=== PATIENT | female | born 1975 | race Caucasian/White ===

== ENCOUNTER → 2017-09-03 | Outpatient (CLI) | payer MEDICAID | LOC: FIMAGING 10:44 | PROVIDERS: ATTEND Obstetrics & Gynecology | DX: O36.80X0 Pregnancy with inconclusive fetal viability, not applicable or unspecified (principal); Z3A.01 Less than 8 weeks gestation of pregnancy ==

== ENCOUNTER → 2017-10-23 | Outpatient (CLI) | payer MEDICAID | LOC: FIMAGING 09:41 | PROVIDERS: ATTEND Obstetrics & Gynecology | DX: O09.521 Supervision of elderly multigravida, first trimester (principal); E03.9 Hypothyroidism, unspecified; Z3A.12 12 weeks gestation of pregnancy; Z79.899 Other long term (current) drug therapy ==

== ENCOUNTER → 2017-12-24 | Outpatient (CLI) | payer MEDICAID | LOC: FIMAGING 07:54 | PROVIDERS: ATTEND Obstetrics & Gynecology | DX: O09.522 Supervision of elderly multigravida, second trimester (principal); Z3A.20 20 weeks gestation of pregnancy ==

== ENCOUNTER → 2018-01-24 | Outpatient (CLI) | payer MEDICAID | LOC: FIMAGING 11:18 | PROVIDERS: ATTEND Obstetrics & Gynecology | DX: O09.522 Supervision of elderly multigravida, second trimester (principal); Z3A.25 25 weeks gestation of pregnancy ==

== ENCOUNTER → 2018-03-18 | Outpatient (CLI) | payer MEDICAID | LOC: FIMAGING 13:56 | PROVIDERS: ATTEND Obstetrics & Gynecology | DX: O09.523 Supervision of elderly multigravida, third trimester (principal); Z3A.32 32 weeks gestation of pregnancy ==

== ENCOUNTER 2018-05-06 02:24 | Inpatient (IN) | payer MEDICAID ==
[2018-05-06] MEDS ORDERED: OXYTOCIN 10 UNIT/ML VIAL ONE (02:34)
[2018-05-06] MEDS ORDERED: LIDOCAINE 1% 300 MG/30 ML SDV ONE (02:34)
[2018-05-06] MEDS ORDERED: TERBUTALINE SULFATE 1 MG/ML VIAL ONE (02:34)
[2018-05-06] MEDS ORDERED: OLIVE OIL 118 ML BTL ONE (02:34)
[2018-05-06] MEDS ORDERED: AMMONIA AROMATIC 1 EACH AMP IH ONE (02:34)
[2018-05-06] MEDS ORDERED: MISOPROSTOL 200 MCG TAB ONE (02:34)
[2018-05-06] MEDS ORDERED: LR 1,000 ML IV PRN (03:11)
[2018-05-06] MEDS ORDERED: OXYTOCIN/RINGERS LACTATE 1,000 ML IV PRN (03:11)
[2018-05-06] MEDS ORDERED: LIDOCAINE 1% 300 MG/30 ML SDV SC PRN (03:11)
[2018-05-06] MEDS ORDERED: TERBUTALINE SULFATE 1 MG/ML VIAL IV PRN (03:11)
[2018-05-06] MEDS ORDERED: EPSOM SALT 454 GM TP PRN (03:11)
[2018-05-06] MEDS ORDERED: IBUPROFEN 600 MG TAB PO PRN (03:11)
[2018-05-06] MEDS ORDERED: AMMONIA AROMATIC 1 EACH AMP IH PRN (03:11)
[2018-05-06] MEDS ORDERED: OLIVE OIL 118 ML BTL MISC PRN (03:11)
[2018-05-06] MEDS ORDERED: MISOPROSTOL 200 MCG TAB PO PRN (03:11)
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
[2018-05-06] MEDS ORDERED: LR 500 ML IV PRN (04:55)
[2018-05-06] MEDS ORDERED: OXYTOCIN/RINGERS LACTATE 500 ML IV SCH (05:00)
--- NOTE | 2018-05-06 06:17 | OBPROG ---
Labor Progress Note Assessment/Plan: A/P: 42 yo at 39w6d, in second stage of labor. Finally able to consistently reduce the anterior lip of the cervix and pt finally agreed to allow pitocin to be started. Progess now being made, after taking over an hour break. Anticipate vaginal delivery. Wendy Baltazar MD, [facility]ACOG [facility] 05/06/18 06:13 Subjective/Intrapartum Course: Pt was able to rest and get up and void, during the break from pushing. 05/06/18 06:18 Objective: During a few more exams after resuming pushing - was able to finally remove/ reduce the cervix without it returning, and good descent of vertex was noted. - SVE Dilation (cm): 10 Effacement (%): 100 Station: +1 Amniotic Fluid Color: Clear - Contraction Pattern Assessment Current Contraction Pattern: Regular - FHR Assessment Burrows FHR (bpm): 125 FHR Pattern Variability: Moderate FHR Category: 1 ICD10 Worksheet Patient Problems: Problems Problem Status Onset Delayed delivery after SROM (spontaneous rupture of membranes) Acute Elderly multigravida in third trimester Acute Elderly multigravida in third trimester Acute - ICD10 Problem Qualifiers (1) Elderly multigravida in third trimester (2) Elderly multigravida in third trimester (3) Delayed delivery after SROM (spontaneous rupture of membranes)
--- NOTE | 2018-05-06 06:53 | OBDEL ---
Info Type: Vaginal Presentation at Delivery: Vertex L&D Analgesia/Anesthesia Type: None GBS+: No Intrapartum Medications: Generic Name Dose Route Start Last Admin Trade Name Krishan PRN Reason Stop Dose Admin Oxytocin/Lactated Ringer's 500 mls @ 0 mls/hr 05/06/18 05:00 05/06/18 05:57 Pitocin 30 Units/Lr (Premix) IV 11/02/18 04:59 500 mls CONT ROBERT Administration Protocol Per Protocol - Hospital Course Intrapartum: Pt was able to rest and get up and void, during the break from pushing. 05/06/18 06:18 Indications for Delivery: Spontaneous Labor, SROM Vaginal Delivery - Labor and Delivery Onset of Contractions Date: 05/05/18 Onset of Contractions Time: 23:30 Onset of Contractions Type: Augmented (Pitocin augmentation started in the second stage) Rupture of Membranes Date: 05/05/18 Rupture of Membranes Time: 23:30 Rupture of Membranes Type: Spontaneous Amniotic Fluid Color: Clear Dilation Complete Date: 05/06/18 Dilation Complete Time: 03:08 - Medications Labor Augmentation/Induction Methods Used: Pitocin Labor Augmentation/Induction Indication: Contraction Strength Inadequate ICD10 Worksheet Patient Problems: Problems Problem Status Onset Delayed delivery after SROM (spontaneous rupture of membranes) Acute Elderly multigravida in third trimester Acute Elderly multigravida in third trimester Acute - ICD10 Problem Qualifiers (1) Elderly multigravida in third trimester (2) Elderly multigravida in third trimester (3) Delayed delivery after SROM (spontaneous rupture of membranes)
[2018-05-06] MEDS ORDERED: HYDROCORTISONE 0.5% CREAM TP PRN (06:54)
[2018-05-06] MEDS ORDERED: SIMETHICONE 80 MG TAB CHEW PO PRN (06:54)
[2018-05-06] MEDS ORDERED: DOCUSATE SODIUM 100 MG CAP PO PRN (06:54)
--- NOTE | 2018-05-06 07:02 | OBDEL ---
Info Type: Vaginal Presentation at Delivery: Vertex L&D Analgesia/Anesthesia Type: None GBS+: No Intrapartum Medications: Generic Name Dose Route Start Last Admin Trade Name Krishan PRN Reason Stop Dose Admin Oxytocin/Lactated Ringer's 500 mls @ 0 mls/hr 05/06/18 05:00 05/06/18 05:57 Pitocin 30 Units/Lr (Premix) IV 11/02/18 04:59 500 mls CONT ROBERT Administration Protocol Per Protocol - Hospital Course Intrapartum: Pt was able to rest and get up and void, during the break from pushing. 05/06/18 06:18 Indications for Delivery: Spontaneous Labor, SROM Vaginal Delivery - Delivery Provider Delivery Physician/CNM: Wendy Baltazar - Labor and Delivery Onset of Contractions Date: 05/05/18 Onset of Contractions Time: 23:30 Rupture of Membranes Date: 05/05/18 Rupture of Membranes Time: 23:30 Rupture of Membranes Type: Spontaneous Amniotic Fluid Color: Clear Dilation Complete Date: 05/06/18 Dilation Complete Time: 03:08 Placenta Delivery Date: 05/06/18 Placenta Delivery Time: 06:45 Total Hours of Labor: 7 Laceration: 1st Degree (and superficial periurethral lacs - all hemostatic, no repairs indicated) Vaginal Sponge Count Correct: Yes Vaginal Needle Count Correct: Yes Vaginal Sweep Performed: Yes EBL: 300 Delivery Events: Shoulder Dystocia (turtle sign, time marked, followed by Scooter and rotational suprapubic pressure with delivery of the right anterior shoulder approximately 30 seconds after the vertex.) Delivery Comment: Pt arrived in L& D at 9.5 m dilated. Unmedicated. Approximately 40 min later she was complete and pushing commenced. During pushing, no descent was made and the anterior lip of the cervix kept reappearing. After pushing almost 1.5 hours, decision was made to stop pushing, and allow pt time to consider allowing pitocin as recommended. Pitocin was started at 0600 and pushing was restarted. Delivery of vertex at 0633, shoulder dystocia noted, and resolved with Scooter followed by rotational suprapubic pressure - resolved in less than 30 seconds. WILIAM, right shoulder was anterior. Small superficial periurethral lacs and 1st degree lac, all hemostatic, no repairs indicated. Gentle traction on the cord and the placenta began to deliver. The cord avulsed when the placenta was at the introitus, it was grasped manually and delivery was assisted gently. EBL 300. Examination of the entire cervix revealed no cervical lacerations. Fundal massage was performed and clots were removed from the lower uterine segment. Pt and baby left in room with RN. Baby moving right arm without any difficulty. - Medications Labor Augmentation/Induction Methods Used: Pitocin Labor Augmentation/Induction Indication: Contraction Strength Inadequate ICD10 Worksheet Patient Problems: Problems Problem Status Onset Delayed delivery after SROM (spontaneous rupture of membranes) Acute Elderly multigravida in third trimester Acute Elderly multigravida in third trimester Acute - ICD10 Problem Qualifiers (1) Elderly multigravida in third trimester (2) Elderly multigravida in third trimester (3) Delayed delivery after SROM (spontaneous rupture of membranes)
[2018-05-06] MEDS: IBUPROFEN 600 MG TAB PO SCH ×3 (07:44→20:15)
[2018-05-06] MEDS: ACETAMINOPHEN 325 MG TAB PO SCH ×3 (07:45→20:14)
[2018-05-07 00:31] VITALS: BP 110/58
[2018-05-07] MEDS: IBUPROFEN 600 MG TAB PO SCH ×3 (03:59→17:08)
[2018-05-07] MEDS: ACETAMINOPHEN 325 MG TAB PO SCH ×3 (03:59→17:08)
--- NOTE | 2018-05-07 10:36 | OBPP ---
Progress Note Assessment/Plan: Assessment: s/p PPD # 1 - pt is stable Plan: Continue routine pp care Plan for d/c home later this evening per pt request Instructions reviewed with pt No Rx given Cont PNV and colace Pelvic rest RTC in 4 and 6 weeks for pp visit 05/07/18 10:36 Subjective/ Course: 05/07/18 10:37 Pt seen and examined. Doing well, with no complaints. Some mild cramping, relief with po meds. Mod lochia. Pt is OOB, michael reg diet, voiding without difficulty and passing flatus. No BM yet. BF without difficulty. They want to go home later this evening. Objective: Patient ABO/Rh O POSITIVE 05/06/18 04:45 Temp Pulse Resp BP Pulse Ox 36.8 C 64 14 110/58 L 97 05/06/18 20:00 05/06/18 20:00 05/06/18 20:00 05/06/18 20:00 05/06/18 11:00 Uterine Position/Fundal Height: Umbilicus -2 Uterine Tone: Firm Physical Exam - Physical Exam General Appearance: WD/WN, alert, no apparent distress Respiratory: lungs clear, normal breath sounds Cardiac/Chest: regular rate, rhythm Abdomen: normal bowel sounds, non-tender, soft, flatus (+) Extremities: non-tender, normal inspection Back: Normal inspection Skin: normal color, warm/dry Neuro/Psych: alert, normal mood/affect, oriented x 3
--- NOTE | 2018-05-07 10:40 | OBGCSDC ---
General Delivery Information - General Info : 4 Para: 2 Abortions: 2 Type: Vaginal L&D Analgesia/Anesthesia Type: None Admission Date: 05/06/18 Labs: Patient ABO/Rh O POSITIVE 05/06/18 04:45 - Hospital Course Intrapartum: Pt was able to rest and get up and void, during the break from pushing. 05/06/18 06:18 : 05/07/18 10:37 Pt seen and examined. Doing well, with no complaints. Some mild cramping, relief with po meds. Mod lochia. Pt is OOB, michael reg diet, voiding without difficulty and passing flatus. No BM yet. BF without difficulty. They want to go home later this evening. Vaginal - Delivery Provider Delivery Physician/CNM: Wendy Baltazar - Diagnosis Labor: Augmented (Pitocin augmentation started in the second stage) Rupture of Membranes Type: Spontaneous Amniotic Fluid Color: Clear Laceration: 1st Degree (and superficial periurethral lacs - all hemostatic, no repairs indicated) Delivery Events: Shoulder Dystocia (turtle sign, time marked, followed by Scooter and rotational suprapubic pressure with delivery of the right anterior shoulder approximately 30 seconds after the vertex.) - Delivery EBL: 300 [place] Data ERICA: 05/07/18 Gestational Age: 40 week(s) and 0 day(s) Burrows Delivery Date: 05/06/18 Delivery Time: 06:33 Sex of : Male Score (1 Min): 8 Score (5 Min): 9 Discharge Information - Discharge Information Condition: Good Instruction/Follow Up: Four Weeks (mood check), Six Weeks (pp check)
== END 2018-05-07 17:20 | disposition home or self-care (01) | DRG 560 ==
LOC: FLD 02:24 → FOB 08:35
PROVIDERS: ADMIT Hospitalist; ATTEND Hospitalist
PROC: 10E0XZZ Delivery of Products of Conception, External Approach (ICD-10-PCS; principal; 2018-05-06)
DX: O63.1 Prolonged second stage (of labor) (principal); O66.0 Obstructed labor due to shoulder dystocia; O69.9XX0 Labor and delivery complicated by cord complication, unspecified, not applicable or unspecified; O70.0 First degree perineal laceration during delivery; O71.82 Other specified trauma to perineum and vulva; O09.513 Supervision of elderly primigravida, third trimester; Z3A.40 40 weeks gestation of pregnancy; Z37.0 Single live birth
CPT/HCPCS: J2590; J3105

== ENCOUNTER → 2018-05-16 | Outpatient (CLI) | payer MEDICAID | LOC: FLACT 13:17 | PROVIDERS: ATTEND Hospitalist | DX: Z39.1 Encounter for care and examination of lactating mother (principal) | CPT/HCPCS: G0463 ==